=== PATIENT | female | born 2000 | race Caucasian/White ===

== ENCOUNTER → 2024-09-15 | Day surgery (SDC) | payer OTHER ==
[~2024-09-15] MED LIST: BUPIVACAINE LIPOSOME/PF 266 MG/20 ML IJ ONE; BUSPIRONE HCL5 MG PO; DEXAMETHASONE SOD PHOS INJ 4 MG/ML SDV ONE; FENTANYL CITRATE/PF 100MCG/2 ML INJ ONE; LIDOCAINE HCL 2% LOCAL INJ 5 ML SDV VIAL INJ ONE; MIDAZOLAM HCL 2 MG/2 ML VIAL ONE; ONDANSETRON HCL INJ 2MG/ML 2ML 2 MG/ML VIAL ONE; OXCARBAZEPINE300 MG PO; PROPOFOL IV EMULSION 10 MG/ML 20 ML VIAL ONE
[2024-09-15] MEDS: LACTATED RINGER'S 1,000 ML ONE (05:54)
[2024-09-15 09:13] VITALS: TEMP 99.3
[2024-09-15] MEDS: FENTANYL CITRATE/PF 100MCG/2 ML INJ ONE (09:24)
[2024-09-15] MEDS: ONDANSETRON HCL INJ 2MG/ML 2ML 2 MG/ML VIAL ONE (09:26)
[2024-09-15] MEDS: METOCLOPRAMIDE HCL 10 MG/2ML VIAL ONE (09:40)
[2024-09-15 10:30] VITALS: BP 106/63; PULSE 80; RESP 18; O2SAT 99
== END | disposition home or self-care (01) ==
LOC: OR 05:28
PROVIDERS: ATTEND Orthopaedic Surgery Sports Medicine
DX: S83.222A Peripheral tear of medial meniscus, current injury, left knee, initial encounter (principal); S83.262A Peripheral tear of lateral meniscus, current injury, left knee, initial encounter; S83.272A Complex tear of lateral meniscus, current injury, left knee, initial encounter; M67.52 Plica syndrome, left knee; M65.862 Other synovitis and tenosynovitis, left lower leg; M23.42 Loose body in knee, left knee; Z71.3 Dietary counseling and surveillance; Z71.82 Exercise counseling; F41.9 Anxiety disorder, unspecified; F32.A Depression, unspecified; X50.1XXA Overexertion from prolonged static or awkward postures, initial encounter; Y93.66 Activity, soccer; Y99.8 Other external cause status; Z88.0 Allergy status to penicillin; Z88.2 Allergy status to sulfonamides; Z79.899 Other long term (current) drug therapy
CPT/HCPCS: 29883; 81025; C1713 ×2; C9290; J0690; J1100; J2003; J2250; J2405; J2704; J2765; J3010; J7121